=== PATIENT | male | born 1975 | race American Indian/Alaskan Native ===

== ENCOUNTER 2017-08-17 17:47 | Emergency (ER) | payer OTHER ==
[2017-08-17] MEDS ORDERED: CATAPRES PO ONE (19:50)
[2017-08-17] MEDS ORDERED: NORCO 5/325 PO ONE (19:50)
--- NOTE | 2017-08-17 19:52 | Emergency Department Report ---
Blank Doc - Documentation Documentation: Patient is a 42-year-old [place] male past history of hypertension who is presenting with a headache today. Patient states is mostly frontal nose temples since a pounding headache as 8 out of 10 in severity has not stopped for the last 3 days. Patient states she is compliant with his blood pressure medicines although his blood pressure is elevated. Patient states he has never had a headache this severe and even when he was diagnosed with high blood pressure never had headaches to this magnitude. Patient denies he has thunderclap sensation he denies any nausea vomiting but does have some light sensitivity. Patient was given poi to the Catapres as well as [place] we will CT his head since this is a new headache for this patient. Nt
--- NOTE | 2017-08-17 21:20 | Cat Scan Report ---
FINAL REPORT EXAM: CT HEAD/BRAIN WO CON HISTORY: headache, HTN, worse headache ever TECHNIQUE: CT was performed from the foramen magnum through the vertex in the axial plane without the use of intravenous contrast. PRIORS: None. FINDINGS: The carlos/white matter attenuation pattern is normal. There is no mass lesion or mass effect. There are no abnormal extra-axial fluid collections. There is no evidence of acute intracranial hemorrhage or infarct. The ventricles are of normal size and configuration. The skull and orbits are unremarkable. There is diffuse opacification of the left maxillary sinus. IMPRESSION: Normal CT of the head. Chronic left maxillary sinusitis
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
[2017-08-17 22:28] VITALS: BP 149/101
== END 2017-08-17 22:48 | disposition home or self-care (01) ==
LOC: ED 17:47
DX: R51 Headache (principal); I10 Essential (primary) hypertension; J32.0 Chronic maxillary sinusitis; F17.200 Nicotine dependence, unspecified, uncomplicated
CPT/HCPCS: 70450; 99283